=== PATIENT | male | born 1945 | race Caucasian/White ===

== ENCOUNTER 2018-04-02 11:36 | Outpatient (CLI) ==
--- NOTE | 2018-04-02 12:09 | DI ---
EXAM: CHEST FRONTAL AND LATERAL VIEWS HISTORY: Cough. COMPARISON: 11/02/2011 FINDINGS: Heart size and mediastinal contour remain within normal limits. Lungs are hyperinflated . there are densities over the apices, more noticeable on the right which in part may be related to superimposed density or summation artifact. No vascular congestion or pleural fluid. IMPRESSION: 1. Densities over the apices may represent infiltrates or superimposed density. Consider follow-up frontal chest radiography with the arms down at the sides, if indicated clinically.
== END 2018-04-02 11:37 | disposition home or self-care (01) ==
LOC: RAD 11:36
PROVIDERS: ATTEND Family Medicine
DX: R05 Cough (principal)

== ENCOUNTER 2018-04-05 08:56 | Outpatient (CLI) | payer OTHER ==
--- NOTE | 2018-04-05 09:35 | DI ---
EXAM: CHEST FRONTAL AND LATERAL VIEWS HISTORY: Follow-up abnormal chest radiograph. COMPARISON: Abnormal chest radiograph FINDINGS: Compared to 04/02/2018 and older exams. Redemonstration of biapical heterogeneous density more noticeable on the right without change since the recent study. Older exam from 2012 had some d ensity in these regions although to a lesser degree. This may represent apical pneumonia at least on the right. Other pathology could include scarring or nodules. The lungs are otherwise unremarkable . Normal heart size. No pleural fluid IMPRESSION: 1. Persistent apical density more noticeable on the right may represent pneumonia, scarring or charlette ivably pulmonary nodules. Especially if the patient has risk factors for pulmonary neoplasia, follow -up CT chest can be considered.
== END 2018-04-05 08:57 | disposition home or self-care (01) ==
LOC: RAD 08:56
PROVIDERS: ATTEND Family Medicine
DX: R91.8 Other nonspecific abnormal finding of lung field (principal)

== ENCOUNTER 2018-04-12 10:32 | Outpatient (CLI) ==
--- NOTE | 2018-04-12 11:32 | CT ---
EXAM: CT of the chest without contrast History: Abnormal chest radiograph Comparison: Chest radiograph 04/05/2018 Technique: Multiplanar CT images through the thorax were obtained without the administration of IV c ontrast. 3-D reconstructions were also acquired. Findings: Heart size is normal. No pericardial effusion. Coronary calcifications. No thoracic aor tic aneurysm. No axillary lymphadenopathy. No pathologically enlarged mediastinal or hilar lymph no marilyn. Biapical lung scarring and nodularity, worse on the right. There are scattered upper lobe pred ominant 2-4 mm micronodules. No pleural fluid and no pneumothorax. Within the visualized upper abdomen. 1.5 cm hepatic cyst. No acute osseous abnormalities. Impression: 1. Biapical lung scarring and nodularity, worse on the right. This is most likely postinflammatory in nature but would recommend a follow-up chest CT in 6 months to document stability. 2. Biapical predominant micronodules also most likely post inflammatory in nature. Close attention to on follow-up recommended. 3. Simple hepatic cyst. 4. Coronary artery disease
== END 2018-04-12 10:33 | disposition home or self-care (01) ==
LOC: RAD 10:32
PROVIDERS: ATTEND Family Medicine
DX: R93.89 Abnormal findings on diagnostic imaging of other specified body structures (principal)